=== PATIENT | male | born 1935 | race Caucasian/White ===

== ENCOUNTER → 2023-10-06 12:27 | Outpatient (CLI) | payer MEDICARE, BC, SELFPAY ==
--- NOTE | 2023-10-06 12:34 | DI.ECHO.S_ITS ---
[facility]---------+ [facility] +---------+ : : [address] : : : : [id number] : : : : Phone: [phone] +---------+ Echocardiogram Report + + :Name: TAE CEDEÑO Study Date: 10/06/2023 Height: 71 in : :[facility] ReadingLocation: Weight: 185 lb : : Gender: Male BSA: 2.0 m2 : :: 1935 Age: 87 yrs BP: 180/91 mmHg: :Reason For Study: HYPERTENSION : :Ordering Physician: LISSETH, : :SARAH Performed By: Annabel Arzola : :Referring: SARAH SARMIENTO : + + Interpretation Summary 1) Mildly increased left ventricular thickness (concentirc) with normal size, normal wall motion, and normal systolic function (EF 55-60%). 2) Normal right ventricular size with low normal function. 3) There is mild aortic regurgitation. There is mild mitral regurgitation. 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 5) No prior Echo available for comparison. Procedure: A two-dimensional transthoracic echocardiogram with color flow and Doppler was performed. The study quality was technically adequate. There is no prior echocardiogram noted for this patient. The heart rate ranged between 44-61 bpm during the study. Left Ventricle: The left ventricle is normal in size. There is mild concentric left ventricular hypertrophy. The ejection fraction is estimated to be 55-60%. Left ventricular systolic function appears normal without focal wall motion abnormalities. Right Ventricle: The right ventricle is normal size. Right ventricular systolic function is at the lower limits of normal. Atria: The left atrium is mildly dilated. Right atrial size is normal. There is no Doppler evidence for an interatrial shunt. Mitral Valve: The mitral valve leaflets appear mildly thickened, but open well. There is mild mitral regurgitation. Aortic Valve: The aortic valve is trileaflet. There is no aortic valve stenosis. There is mild aortic regurgitation. Tricuspid Valve: The tricuspid valve is normal in structure and function. There is mild tricuspid regurgitation. The right ventricular systolic pressure is estimated to be at least 43 mmHg based on an estimated right atrial pressure of 8 mm Hg. Pulmonic Valve: The pulmonic valve leaflets are thin and pliable; valve motion is normal. There is no pulmonic valvular regurgitation. 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 This suggests a right atrial pressure of 8 mm Hg. Pericardium/ Pleura There is no pericardial effusion. There is no pleural effusion. MMode/2D Measurements & Calculations LVIDd: 4.8 cm LVOT diam: 2.2 cm LVIDs: 3.4 cm Ao root diam: 4.6 cm FS: 28.7 % asc Aorta Diam: 4.1 cm IVSd: 1.3 cm Ao Arch Diam (Prox Trans): 4.0 cm LVPWd: 1.3 cm LV cueva. diameter/BSA (cm/m^2): 2.3 LV sys. diameter/BSA (cm/m^2): 1.7 LA A2 area: 22.9 cm2 RA long axis: 6.2 cm LA A4 area: 23.4 cm2 RA area: 21.4 cm2 LA length (vol): 5.7 cm RA vol: 62.5 ml LA vol: 80.3 ml RA : 30.7 ml/m2 LA vol index: 39.4 ml/m2 IVC diam: 2.5 cm RVD1 (basal): 3.8 cm RVD2 (mid): 3.1 cm TAPSE: 1.5 cm Doppler Measurements & Calculations Ao V2 max: 122.7 cm/sec LVOT Max Brent: 86.6 cm/sec Ao V2 mean: 89.5 cm/sec LV V1 max P.0 mmHg Ao max P.1 mmHg LV V1 VTI: 17.3 cm Ao mean P.6 mmHg DARYA(I,D): 2.6 cm2 Ao V2 VTI: 24.8 cm DARYA(V,D): 2.6 cm2 sev ratio: 0.70 DARYA indexed to BSA (cm^2/m^2): 1.3 MV E max brent: 63.6 cm/sec TR max brent: 297.0 cm/sec MV A max brent: 27.3 cm/sec TR max P.3 mmHg MV E/A: 2.3 PA V2 max: 73.9 cm/sec Med Peak E' Brent: 7.0 cm/sec PA V2 mean: 55.3 cm/sec E/E' med: 9.1 PA mean P.3 mmHg Lat Peak E' Brent: 10.8 cm/sec PA pr(Accel): 55.0 mmHg E/E' lat: 5.9 E/e' average: 7.5 MV dec time: 0.32 sec SV(LVOT): 63.8 ml Reading Physician:04:02 PM
== END ==
PROVIDERS: PCP Physician Assistant; Referring Provider Internal Medicine Cardiovascular Disease; Visit Provider Internal Medicine Cardiovascular Disease
DX: I48.19 Other persistent atrial fibrillation (principal); I08.3 Combined rheumatic disorders of mitral, aortic and tricuspid valves; I77.810 Thoracic aortic ectasia; I77.89 Other specified disorders of arteries and arterioles
CPT/HCPCS: 93306